=== PATIENT | female | born 1955 ===

== ENCOUNTER 2017-05-26 16:10 | Emergency (ER) | payer OTHER ==
[2017-05-26 16:35] VITALS: BP 148/82; RESP 18; TEMP 98.8; O2SAT 99
--- NOTE | 2017-05-26 17:39 | ED PDOC ---
HPI: Chest Pain Time Seen by Provider: 05/26/17 17:22 Chief Complaint (Nursing): Cough, Cold, Congestion Chief Complaint (Provider): Chest Pain History Per: Patient History/Exam Limitations: no limitations Onset/Duration Of Symptoms: Days (x4 weeks) Current Symptoms Are (Timing): Still Present Severity: None Exacerbating Factors: Deep Breathing, Exertion Alleviating Factors: None Additional Complaint(s): 61 year old female presents to the ED complaining of intermittent chest pain and cough. The patient also states that she had had an intermittent cough for 4 weeks with alot of force. She states that the chest pain occurs with deep inspiration or exertion. PMD: FAMILY PROVIDER,NO Past Medical History Reviewed: Historical Data, Nursing Documentation, Vital Signs Vital Signs: Last Vital Signs Temp 98.8 F 05/26/17 16:33 Pulse 83 05/26/17 17:22 Resp 18 05/26/17 16:33 BP 148/82 05/26/17 16:33 Pulse Ox 99 05/26/17 17:47 - Medical History PMH: No Chronic Diseases - Surgical History Surgical History: No Surg Hx - Family History Family History: States: Unknown Family Hx - Living Arrangements Living Arrangements: With Family - Home Medications Home Medications: Ambulatory Orders Medication Instructions Recorded Promethazine/Codeine 5 ml PO Q12 PRN #100 ml 05/26/17 [Codeine/Promethazine 10 MG/5 Ml-6.25 MG/5 Ml] - Allergies Allergies/Adverse Reactions: Allergies Allergy/AdvReac Type Severity Reaction Status Date / Time No Known Allergies Allergy Verified 05/26/17 16:33 Review of Systems Cardiovascular: Positive for: Chest Pain Respiratory: Positive for: Cough Physical Exam - Physical Exam Appears: Positive for: Non-toxic, No Acute Distress Head Exam: Positive for: NORMAL INSPECTION Skin: Positive for: Normal Color, Warm, Dry. Negative for: Rash ENT: Positive for: Other (mild throat irritation). Negative for: Nasal Congestion, Tonsillar Exudate, Tonsillar Swelling Neck: Positive for: Normal, Painless ROM, Supple Cardiovascular/Chest: Positive for: Regular Rate, Rhythm, Chest Non Tender. Negative for: Tachycardia Respiratory: Positive for: Normal Breath Sounds. Negative for: Rales, Rhonchi, Wheezing, Respiratory Distress Gastrointestinal/Abdominal: Positive for: Normal Exam, Bowel Sounds, Soft. Negative for: Tenderness, Guarding Back: Positive for: Normal Inspection. Negative for: L CVA Tenderness, R CVA Tenderness Extremity: Positive for: Normal ROM. Negative for: Tenderness, Deformity, Swelling Neurologic/Psych: Positive for: Alert, Oriented - Laboratory Results Result Diagrams: 05/26/17 17:49 05/26/17 17:50 - ECG O2 Sat by Pulse Oximetry: 99 (RA) Pulse Ox Interpretation: Normal - Progress ED Course And Treament: CXR: NO ACUTE DISEASE EKG REVIEWED WITH DR. ROSEN NO ACUTE FINDINGS ASA 324 MG X 1 DOSE REPEAT TROPININ AFTER 3 HOURS /D -DIMER D-DIMER NOTED ELEVATED CTA CHEST: NO PE/ NO PNEUMONIA INFLUENZA A/B NEG Medical Decision Making Medical Decision Makin Initial Impression 61 year old female presenting with cough and chest pain Initial Plan: * EKG * BMP * Magnesium * Troponin * CBC * CXR * Aspirin 324mg PO * Influenza A B * Rapid strep group * Reevaluation Documented by Erica Quigley acting as a scribe for Carmelina Swanson PA-C. All medical record entries made by the Scribe were at my direction and personally dictated by me. I have reviewed the chart and agree that the record accurately reflects my personal performance of the history, physical exam, medical decision making, and the department course for this patient. I have also personally directed, reviewed, and agree with the discharge instructions and disposition. Disposition - Clinical Impression Clinical Impression: Viral illness - Patient ED Disposition Is Patient to be Admitted: No - Disposition Referrals: [facility] [Outside] Disposition: Routine/Home Disposition Time: 23:45 Condition: FAIR Prescriptions: Promethazine/Codeine [Codeine/Promethazine 10 MG/5 Ml-6.25 MG/5 Ml] 5 ml PO Q12 PRN #100 ml PRN Reason: Cough Instructions: Viral Syndrome (ED) Forms: [employer] ([place]), [facility] ED School/Work Excuse
--- NOTE | 2017-05-26 17:53 | RAD ---
HISTORY: cp COMPARISON: No prior. TECHNIQUE: Chest PA and lateral FINDINGS: LUNGS: No active pulmonary disease. PLEURA: No significant pleural effusion identified. No pneumothorax apparent. CARDIOVASCULAR: Normal. OSSEOUS STRUCTURES: No significant abnormalities. VISUALIZED UPPER ABDOMEN: Normal. OTHER FINDINGS: None. IMPRESSION: No active disease.
[2017-05-26 18:03] VITALS: PULSE 83
[2017-05-26 18:09] LABS: BLOOD UREA NITROGEN 11 mg/dl (7-17); CALCIUM 9.6 mg/dL (8.4-10.2); GFR AFRICAN-AMERICAN > 60; GFR NON-AFRICAN AMERICAN > 60; MAGNESIUM 2.1 MG/DL (1.6-2.3)
[2017-05-26 18:11] LABS: BASO % 0.3 % (0.0-2.0); EOS # 0.1 K/uL (0.0-0.7); HEMOGLOBIN 13.7 g/dL (12.0-16.0); LYMPH # 2.6 K/uL (1.0-4.3); LYMPH % 24.8 % (20.0-40.0); MEAN CELL VOLUME 83.5 fl (81.0-99.0); MEAN CORPUSCULAR HEMOGLOBIN 28.1 pg (27.0-31.0); MEAN CORPUSCULAR HGB CONC 33.6 g/dL (33.0-37.0); MEAN PLATELET VOLUME 7.6 fl (7.2-11.7); MONO # 0.8 K/uL (0.0-0.8); MONO % 7.6 % (0.0-10.0); NEUT # 6.8 K/uL (1.8-7.0); NEUT % 66.3 % (50.0-75.0); NRBC % 0.1 % (0.0-0.0); RBC 4.89 Mil/uL (3.80-5.20); RED CELL DISTRIBUTION WIDTH 13.9 % (11.5-14.5); WHITE BLOOD COUNT 10.3 K/uL (4.8-10.8)
[2017-05-26] MEDS ORDERED: Iodixanol 320 MG/ML 100 ML BOTTLE IV ONE (22:16)
[2017-05-26] MEDS ORDERED: Sodium Chloride 0.9% 50 ML IV ONE (22:17)
[2017-05-26] MEDS ORDERED: Sodium Chloride 0.9% 500 ML IV STA (22:19)
--- NOTE | 2017-05-26 23:29 | CT ---
EXAM: CT Angiography Chest With Intravenous Contrast EXAM DATE/TIME: 05/26/2017 9:50 PM CLINICAL HISTORY: 61 years old, female; Signs and symptoms; Cough; Symptoms not specified; Additional info: R/O pe TECHNIQUE: Axial computed tomographic angiography images of the chest with intravenous contrast using pulmonary embolism protocol. All CT scans at this facility use one or more dose reduction techniques, viz.: automated exposure control; ma/kV adjustment per patient size (including targeted exams where dose is matched to indication; i.e. head); or iterative reconstruction technique. MIP reconstructed images were created and reviewed. Coronal and sagittal reformatted images were created and reviewed. CONTRAST: 90 mL of [id number] administered intravenously. COMPARISON: CR - CHEST TWO VIEWS (PA/LAT) 2017-05-26 17:25 FINDINGS: Heart aorta and Pulmonary arteries: Heart size is normal. There is fluid in pericardial recesses.There is no aneurysm or dissection.There are vascular calcifications. Main pulmonary artery is mildly prominent 37 m in diameter. There are no pulmonary emboli. Lungs and pleural spaces: Trachea and main bronchi are patent.There is no pneumothorax. There is minimal apical scarring. There is no lobar or segmental consolidation. There is minimal groundglass opacity in the lingula. There is subsegmental atelectasis/scarring at the left base. There is dependent atelectasis bilaterally. There is minimal scarring at the lung bases. There are no effusions. Mediastinum: The esophagus is unremarkable. There is a small hiatal hernia. There are no pathologically enlarged mediastinal or hilar nodes. Thyroid: Thyroid is not optimally demonstrated. Bones/joints: There are no acute osseous abnormalities. Soft tissues: unremarkable Upper abdomen: There are no acute abnormalities in the visualized portion of the abdomen. IMPRESSION: No aneurysm, dissection or pulmonary embolus; mildly prominent main pulmonary artery suggest pulmonary hypertension; no focal pneumonia
--- NOTE | 2017-05-27 13:44 | CARD ---
APPROVED REPORT EKG Measurement Heart [id number] <Conclusion> Normal sinus rhythm Normal ECG
== END 2017-05-27 00:18 | disposition home or self-care (01) ==
LOC: H.ER 16:10
DX: B34.9 Viral infection, unspecified (principal); Z79.82 Long term (current) use of aspirin
CPT/HCPCS: 71046; 71275; 80048; 83735; 84484; 85025; 85378; 87070; 87430; 87804; 93005; 99282; J7040; Q9967